=== PATIENT | male | born 1965 | race Caucasian/White ===

== ENCOUNTER 2017-04-01 06:40 | Day surgery (SDC) | payer OTHER ==
[~2017-04-01] VITALS: Ht 182.9 cm; Wt 68.7 kg
[2017-04-01 07:13] VITALS: BP 110/80; PULSE 50; TEMP 97.9
[2017-04-01 09:05] VITALS: BP 113/85; PULSE 57; TEMP 98.2
[2017-04-01 09:20] VITALS: BP 106/76; PULSE 58
== END 2017-04-01 09:50 | disposition home or self-care (01) ==
LOC: SDCO 06:40
DX: Z12.11 Encounter for screening for malignant neoplasm of colon (principal); Z80.8 Family history of malignant neoplasm of other organs or systems; Z82.49 Family history of ischemic heart disease and other diseases of the circulatory system
CPT/HCPCS: OP; J2250; J2405; J3010; J7030